=== PATIENT | male | born 1990 | race Caucasian/White ===

== ENCOUNTER 2018-09-29 12:15 | Emergency (ER) | payer SELFPAY ==
--- NOTE | 2018-09-29 12:47 | EDM.PDOC ---
ED HPI GENERAL MEDICAL PROBLEM - General Chief Complaint: Upper Extremity Injury/Pain Stated Complaint: INJURED HANDS Time Seen by Provider: 09/29/18 12:22 Source of Information: Reports: Patient History Limitations: Reports: No Limitations - History of Present Illness INITIAL COMMENTS - FREE TEXT/NARRATIVE: HISTORY AND PHYSICAL: History of present illness: Patient is a 28-year-old male here with complaint of right hand injury. He states that he was working on his synovial couple of days ago on the stool came down landing on his right hand. He states that since that has gotten more swollen and painful. Review of systems: As per history of present illness and below otherwise all systems reviewed and negative. Past medical history: As per history of present illness and as reviewed below otherwise noncontributory. Surgical history: As per history of present illness and as reviewed below otherwise noncontributory. Social history: No reported history of drug or alcohol abuse. Family history: As per history of present illness and as reviewed below otherwise noncontributory. Physical exam: General: Patient sitting comfortably in no acute distress and nontoxic appearing HEENT: Atraumatic, normocephalic, pupils reactive, negative for conjunctival pallor or scleral icterus, mucous membranes moist, throat clear, neck supple, nontender, trachea midline. No meningeal signs. Lungs: Clear to auscultation, breath sounds equal bilaterally, chest nontender. Heart: S1S2, regular, negative for clicks, rubs, or overt murmur. Abdomen: Soft, nondistended, nontender. Negative for masses or hepatosplenomegaly. Negative for costovertebral tenderness. No rigidity, rebound , guarding. Pelvis: Stable nontender. Genitourinary: Deferred. Rectal: Deferred. Extremities: Right hand is swollen. There is a small superficial abrasion dorsal aspect of the hand first metacarpal. There are 2 small abrasions on the palm of the hand without surrounding erythema or drainage of any of these abrasions. He is able to flex and extend his wrist without discomfort. ROM of fingers is limited due to the swelling and pain. Pain to palpation along the first metacarpal and the pinky. There is an ecchymotic area between the pinky PIP and MCP. Negative for cords or calf pain. Neurovascular unremarkable. Neuro: Awake, alert, oriented. Cranial nerves II through XII unremarkable. Cerebellum unremarkable. Motor and sensory unremarkable throughout. Exam nonfocal. Notes: Superficial abrasion to the right hand overlying the area of the hairline fracture, no signs of infection on exam. Will cover with Keflex and refer to Dr. Roberts. Diagnostics: X-ray right hand, x-ray right wrist Therapeutics: Patient declined tdap Wrist brace Prescriptions: Keflex Impression: Nondisplaced hairline fracture second metacarpal Plan: 1. Take antibiotic as instructed. Ice, elevate and motrin or tylenol as needed. You may take tramadol as needed for severe pain, do not take while driving or working as it may make you drowsy. 2. Follow up with Hand Surgery, please call the number provided to schedule the appointment 3. Return to ED as needed as needed as discussed Definitive disposition and diagnosis as appropriate pending reevaluation and review of above. Right Hand Pain Score (Numeric/FACES): 6 - Related Data Allergies Allergy/AdvReac Type Severity Reaction Status Date / Time No Known Allergies Allergy Verified 09/29/18 12:25 Home Meds: Home Meds Albuterol Sulfate [Proair Hfa] 1 puff INH ASDIRECTED 09/29/18 [History] Cephalexin [Keflex] 500 mg PO BID 7 Days #14 capsule 09/29/18 [Rx] traMADol [Ultram] 50 mg PO Q6H PRN #12 tab 09/29/18 [Rx] Past Medical History Respiratory History: Reports: Asthma - Infectious Disease History Infectious Disease History: Reports: None - Past Surgical History Musculoskeletal Surgical History: Reports: Other (See Below) Other Musculoskeletal Surgeries/Procedures:: Surgery on right hand Social & Family History - Family History Family Medical History: Noncontributory - Tobacco Use Smoking Status *Q: Current Every Day Smoker Years of Tobacco use: 12 Packs/Tins Daily: 1 - Recreational Drug Use Recreational Drug Use: No Review of Systems - Review of Systems Review Of Systems: ROS reveals no pertinent complaints other than HPI. ED EXAM, GENERAL - Physical Exam Exam: See Below (See dictation) Course - Vital Signs Last Recorded V/S: Last Vital Signs Temp 97.1 F 09/29/18 12:26 Pulse 76 09/29/18 12:26 Resp 16 09/29/18 12:26 BP 136/82 09/29/18 12:26 Pulse Ox 97 09/29/18 12:26 Departure - Departure Time of Disposition: 13:06 Disposition: Home, Self-Care 01 Condition: Good Clinical Impression: Metacarpal bone fracture - Discharge Information Prescriptions: Cephalexin [Keflex] 500 mg PO BID 7 Days #14 capsule traMADol [Ultram] 50 mg PO Q6H PRN #12 tab PRN Reason: Pain (Severe 7-10) Referrals: PCP,None [Primary Care Provider] - Forms: ED Department Discharge Additional Instructions: The following information is given to patients seen in the emergency department who are being discharged to home. This information is to outline your options for follow-up care. We provide all patients seen in our emergency department with a follow-up referral. The need for follow-up, as well as the timing and circumstances, are variable depending upon the specifics of your emergency department visit. If you don't have a primary care physician on staff, we will provide you with a referral. We always advise you to contact your personal physician following an emergency department visit to inform them of the circumstance of the visit and for follow-up with them and/or the need for any referrals to a consulting specialist. The emergency department will also refer you to a specialist when appropriate. This referral assures that you have the opportunity for follow-up care with a specialist. All of these measure are taken in an effort to provide you with optimal care, which includes your follow-up. Under all circumstances we always encourage you to contact your private physician who remains a resource for coordinating your care. When calling for follow-up care, please make the office aware that this follow-up is from your recent emergency room visit. If for any reason you are refused follow-up, please contact the [facility] Emergency Department at and asked to speak to the emergency department charge nurse. [facility] - Hand [facility] Plastic Surgery Professional Building [address] [place] [address], [address] [place] [address] 1. Take antibiotic as instructed. Ice, elevate and motrin or tylenol as needed. You may take tramadol as needed for severe pain, do not take while driving or working as it may make you drowsy. 2. Follow up with Hand Surgery, please call the number provided to schedule the appointment 3. Return to ED as needed as needed as discussed
--- NOTE | 2018-09-29 12:54 | CR ---
EXAMINATION: Right hand and right wrist HISTORY: Injury COMPARISON: None TECHNIQUE: 2 views of the right wrist and 3 views of the right hand FINDINGS: There is a hairline nondisplaced fracture through the distal diaphysis of the second metacarpal. The remaining osseous structures and joint spaces appear intact. Bone mineralization and joint spaces are preserved. Radiocarpal alignment is normal. Probable old ulnar styloid injury. IMPRESSION: Nondisplaced hairline fracture of the second metacarpal.
== END 2018-09-29 13:35 | disposition home or self-care (01) ==
LOC: MW.ED 12:15 → EDSEX 12:15 → MW.ED 13:35
DX: S62.244A Nondisplaced fracture of shaft of first metacarpal bone, right hand, initial encounter for closed fracture (principal); J45.909 Unspecified asthma, uncomplicated; F17.210 Nicotine dependence, cigarettes, uncomplicated; W20.8XXA Other cause of strike by thrown, projected or falling object, initial encounter; Y99.0 Civilian activity done for income or pay
CPT/HCPCS: 73100-26-RT; 73100-RT; 73130-26-RT; 73130-RT; 99283; 99283-25

== ENCOUNTER 2020-04-19 12:02 | Emergency (ER) | payer MEDICAID ==
--- NOTE | 2020-04-19 12:59 | EDM.PDOC ---
ED HPI GENERAL MEDICAL PROBLEM - General Chief Complaint: General Stated Complaint: ABCESS TOOTH Time Seen by Provider: 04/19/20 12:23 - History of Present Illness INITIAL COMMENTS - FREE TEXT/NARRATIVE: History of present illness: Patient presents with a dental abscess in the left lower first molar. He says the tooth is been bothering some time it cracked 4 days ago and now is infected he states he try to get a dental appointment and it is not for 6 weeks he wants an antibiotic to try to control the abscess he also is asking for refill on his albuterol inhaler he currently has no asthma symptoms. No other medical proble ms no allergies nothing makes it better or worse Review of systems: As per history of present illness and below otherwise all systems reviewed and negative. Past medical history: As per history of present illness and as reviewed below otherwise noncontributory. Surgical history: As per history of present illness and as reviewed below otherwise noncontributory. Social history: No reported history of drug or alcohol abuse. Family history: As per history of present illness and as reviewed below otherwise noncontributory. Physical exam: HEENT: Atraumatic, normocephalic, pupils reactive, negative for conjunctival pallor or scleral icterus, mucous membranes moist, throat clear, neck supple, nontender, trachea midline. Widely spread poor dentition he has a cracked and abscessed left lower first molar. No trismus no stridor Lungs: Clear to auscultation, breath sounds equal bilaterally, chest nontender. Heart: S1S2, regular, negative for clicks, rubs, or JVD. Abdomen: Soft, nondistended, nontender. Negative for masses or hepatosplenomegaly. Negative for costovertebral tenderness. Pelvis: Stable nontender. Genitourinary: Deferred. Rectal: Deferred. Extremities: Atraumatic, negative for cords or calf pain. Neurovascular unremarkable. Neuro: Awake, alert, oriented. Cranial nerves II through XII unremarkable. Cerebellum unremarkable. Motor and sensory unremarkable throughout. Exam nonfocal. Diagnostics: [] Therapeutics: [] Impression: Abscess facial cellulitis [] Plan: Pen-Vee K naproxen and I will refill his albuterol inhaler [] Definitive disposition and diagnosis as appropriate pending reevaluation and review of above. dental, left lower Pain Score (Numeric/FACES): 6 - Related Data Allergies Allergy/AdvReac Type Severity Reaction Status Date / Time No Known Allergies Allergy Verified 04/19/20 12:53 Home Meds: Home Meds Albuterol Sulfate [Proair Hfa] 1 puff INH ASDIRECTED 09/29/18 [History] Albuterol Sulfate [Albuterol Sulfate Hfa] 8.5 gm IH Q4HR #1 [email or web address] 04/19/20 [Rx] Naproxen [Naprosyn] 500 mg PO Q12HR #20 tab 04/19/20 [Rx] Penicillin V Potassium [Veetids] 500 mg PO Q6H #40 tab 04/19/20 [Rx] Past Medical History - Past Health History Medical/Surgical History: Denies Medical/Surgical History Respiratory History: Reports: Asthma - Infectious Disease History Infectious Disease History: Reports: Chicken Pox - Past Surgical History Musculoskeletal Surgical History: Reports: Other (See Below) Other Musculoskeletal Surgeries/Procedures:: Surgery on right hand Social & Family History - Family History Family Medical History: Noncontributory - Tobacco Use Smoking Status *Q: Current Every Day Smoker Years of Tobacco use: 10 Packs/Tins Daily: 1 - Recreational Drug Use Recreational Drug Use: No ED ROS GENERAL - Review of Systems Review Of Systems: See Below ED EXAM, GENERAL - Physical Exam Exam: See Below Course - Vital Signs Last Recorded V/S: Last Vital Signs Temp 36.1 C 04/19/20 12:51 Pulse 75 04/19/20 12:51 Resp 18 04/19/20 12:51 BP 161/88 H 04/19/20 12:51 Pulse Ox 96 04/19/20 12:51 Departure - Departure Time of Disposition: 13:08 Disposition: Home, Self-Care 01 Condition: Good Clinical Impression: Dental abscess, Asthma - Discharge Information *PRESCRIPTION DRUG MONITORING PROGRAM REVIEWED*: Not Applicable *COPY OF PRESCRIPTION DRUG MONITORING REPORT IN PATIENT NAILA: Not Applicable Prescriptions: Naproxen [Naprosyn] 500 mg PO Q12HR #20 tab Penicillin V Potassium [Veetids] 500 mg PO Q6H #40 tab Instructions: Asthma, Adult, Dental Abscess Referrals: PCP,None [Primary Care Provider] - Forms: ED Department Discharge Additional Instructions: The following information is given to patients seen in the emergency department who are being discharged to home. This information is to outline your options for follow-up care. We provide all patients seen in our emergency department with a follow-up referral. The need for follow-up, as well as the timing and circumstances, are variable depending upon the specifics of your emergency department visit. If you don't have a primary care physician on staff, we will provide you with a referral. We always advise you to contact your personal physician following an emergency department visit to inform them of the circumstance of the visit and for follow-up with them and/or the need for any referrals to a consulting speci alist. The emergency department will also refer you to a specialist when appropriate. This referral assures that you have the opportunity for follow-up care with a specialist. All of these measure are taken in an effort to provide you with optimal care, which includes your follow-up. Under all circumstances we always encourage you to contact your private physician who remains a resource for coordinating your care. When calling for follow-up care, please make the office aware that this follow-up is from your recent emergency room visit. If for any reason you are refused follow-up, please contact the [facility] Emergency Department at and asked to speak to the emergency department charge nurse. You need to see a dentist as soon as possible Sepsis Event Note (ED) - Evaluation Sepsis Screening Result: No Definite Risk - Focused Exam Vital Signs: Vital Signs Temp Pulse Resp BP Pulse Ox 04/19/20 12:51 36.1 C 75 18 161/88 H 96
== END 2020-04-19 13:21 | disposition home or self-care (01) ==
LOC: MW.ED 12:02
DX: K04.7 Periapical abscess without sinus (principal); L03.211 Cellulitis of face; J45.909 Unspecified asthma, uncomplicated; F17.210 Nicotine dependence, cigarettes, uncomplicated
CPT/HCPCS: 99282